=== PATIENT | male | born 1990 | race Caucasian/White ===

== ENCOUNTER 2017-03-22 10:19 | Emergency (ER) | payer SELFPAY ==
--- NOTE | 2017-03-22 11:12 | EDPHY ---
H & P Time Seen by Provider: 03/22/17 10:33 HPI/ROS: CHIEF COMPLAINT: Heroin overdose HISTORY OF PRESENT ILLNESS: Patient is a 26-year-old male who presents emergency department after using heroin. Patient was found by his roommates on the floor. EMS found the patient responsive and alert. They did not give the patient Narcan. On arrival to the emergency department the patient states he has no complaints. He would prefer not to have any intervention. Patient denies chest pain or shortness of breath. He reports using IV heroin riding and use that this morning. He states that he did contact [facility] to help with his detox. He does not want detox from the emergency department. Patient denies alcohol use regularly. Occasionally uses THC. No recent illnesses. REVIEW OF SYSTEMS: My complete review of systems is negative except as mentioned in the HPI. Past Medical/Surgical History: Includes heroin abuse, hypertension, depression Past surgical history: Tonsillectomy Social history: The patient uses heroin and THC. Occasional alcohol use. Smoking Status: Current every day smoker Physical Exam: Vitals noted. The patient had oxygen saturation of 78% arrival. He is placed on a nasal cannula and his oxygen saturation is 94%. GENERAL: Well-appearing, in no acute distress, alert. HEENT: Eyes normal to inspection, normal pharynx, no signs of dehydration. NECK: No thyromegaly, no lymphadenopathy, supple. Patient has a small needlestick site in his left neck. No surrounding erythema RESPIRATORY: Clear to auscultation bilaterally, no rales, rhonchi or wheezing. CVS: Regular rate and rhythm, no rubs, murmurs, or gallops. ABDOMEN: Soft, nontender, nondistended, no organomegaly. BACK: Normal to inspection, no CVA tenderness. SKIN: Normal color, no rash, warm, dry. No pallor. EXTREMITIES: No pedal edema, no calf tenderness, no Homans sign or cords, no joint swelling. Appear normal. No rash. No tracks. NEURO/PSYCH: Alert and oriented x3, normal mood and affect, normal motor sensory exam. Constitutional: Initial Vital Signs O2 Sat (%) 94 03/22/17 10:25 O2 Delivery Mode Nasal Cannula O2 (L/minute) 2 Allergies/Adverse Reactions: amoxicillin Allergy (Verified 03/22/17 10:30) Home Medications: Medication Instructions Recorded NK [No Known Home Meds] 03/22/17 Medical Decision Making - Diagnostics Imaging Results: Imaging Impressions Chest X-Ray 03/22/17 13:23 Impression: Normal chest x-ray. ED Course/Re-evaluation: In the emergency department I discussed the plan with the patient. I answered all his questions. At this time he refuses an IV. I informed him of his vital sign abnormalities. Patient had normal discussion with me was able to answer all my questions appropriately. He seems to have good understanding of his condition as well as capacity to make his own decisions. He will be observed to ensure that he does not have decreased mental status while here. I will test him off of oxygen to ensure that his saturation is maintained. On recheck the patient had a slight drop in his oxygen saturation. Because of this he was placed back on oxygen. Incentive spirometry was ordered. I rechecked the patient on numerous occasions. He was doing well during his stay. He had no complaints. He requested discharge home. 14 50: Patient again requests discharge home. He denies any complaints. He has no shortness of breath. Oxygen saturation is noted to be 85%. I discussed this with the patient and offered further testing. Patient has had no decreased mental status while here. I do not feel his oxygen level is affecting his decision-making capacity. He can make a decision to be discharged. The patient does not want detox or rehab from the emergency department. Differential Diagnosis: My differential includes but is not limited to heroin overdose, hypoxia, aspiration pneumonia, pneumonia, pulmonary embolus, ACS, acute OR Departure - Departure Disposition: Home, Routine, Self-Care Clinical Impression: Polysubstance abuse, Heroin abuse Condition: Good Instructions: Narcotic Abuse (ED) Additional Instructions: Return with increasing shortness of breath, fever, chills or any other concerns. Referrals: [facility],. [Clinic] - 5-7 days, call for appt.
[2017-03-22 15:03] VITALS: O2SAT 91
[2017-03-22 15:04] VITALS: BP 133/64; PULSE 68; RESP 16; TEMP 97.9
== END 2017-03-22 15:05 | disposition home or self-care (01) ==
DX: F11.10 Opioid abuse, uncomplicated (principal); I10 Essential (primary) hypertension; F17.200 Nicotine dependence, unspecified, uncomplicated